=== PATIENT | female | born 1950 | race Caucasian/White ===

== ENCOUNTER → 2019-04-24 | Outpatient (CLI) | payer BC ==
[~2019-04-24] MED LIST: REGADENOSON 0.4 MG/5 ML DISP.SYRIN. IV ONE
--- NOTE | 2019-04-25 10:01 | PCVCIMAG ---
APPROVED REPORT Study performed: 04/24/2019 15:15:23 EXAM: Comprehensive 2D, Doppler, and color-flow Echocardiogram Patient Location: Echo lab Room #: 3Status: routine BSA: 1.97 HR: 74 bpmBP: 141/70 mmHg Rhythm: NSR Other Information Study Quality: Adequate Risk Factors: Cardiac Risk Factors: Hyperlipidemia Indications CAD Dyspnea on Exertion 2D Dimensions IVSd: 9.70 (7-11mm)LVOT Diam: 20.00 (18-24mm) LVDd: 44.90 mm PWd: 9.78 (7-11mm)Ascending Ao: 26.51 (22-36mm) LVDs: 29.37 (25-40mm) Left Atrium: 39.90 (27-40mm) Aortic Root: 29.08 mm LV Single Plane 4CH: 47.76 % LV Single Plane 2CH: 53.51 % Biplane EF: 50.7 % Volumes Left Atrial Volume (Systole) Single Plane 4CH: 36.24 mLSingle Plane 2CH: 44.69 mL LA ESV Index: 25.00 mL/m2 Aortic Valve AoV Peak Justin.: 1.50 m/s AO Peak Gr.: 9.05 mmHgLVOT Max P.22 mmHg LVOT Max V: 1.03 m/s GEO Vmax: 2.06 cm2 Mitral Valve E/A Ratio: 0.7 MV Decel. Time: 181.46 ms MV E Max Justin.: 0.76 m/s MV A Justin.: 1.06 m/s IVRT: 83.04 ms TDI E/Lateral E': 9.50E/Medial E': 19.00 Medial E' Justin.: 0.04 m/s Lateral E' Justin.: 0.08 m/s Pulmonary Valve PV Peak Justin.: 0.97 m/sPV Peak Gr.: 3.80 mmHg Pulmonary Vein P Vein S: 0.73 m/sP Vein A: 0.33 m/s P Vein D: 0.38 m/sP Vein A Dur.: 96.9 msec P Vein S/D Ratio: 1.92 Tricuspid Valve RAP Estimate: 7.00 mmHg Left Ventricle The left ventricle is normal size. There is normal LV segmental wall motion. There is normal left ventricular wall thickness. Left ventricular systolic function is normal. The left ventricular ejection fraction is within the normal range. LVEF is >55%. Mild diastolic dysfunction is present (impaired relaxation pattern). Right Ventricle The right ventricle is normal size. The right ventricular systolic function is normal. Atria The left atrium size is normal. The right atrium size is normal. Aortic Valve The aortic valve is normal in structure. No aortic regurgitation is present. There is no aortic valvular stenosis. Mitral Valve The mitral valve is normal in structure. Trace mitral regurgitation. No evidence of mitral valve stenosis. Tricuspid Valve The tricuspid valve is normal in structure. There is no tricuspid valve regurgitation noted. Pulmonic Valve The pulmonary valve is normal in structure. There is no pulmonic valvular regurgitation. Great Vessels The aortic root is normal in size. The ascending aorta is normal in size. IVC is normal in size and collapses >50% with inspiration. Pericardium There is no pericardial effusion. <Conclusion> The left ventricle is normal size. LVEF is >55%. The aortic valve is normal in structure. The mitral valve is normal in structure. Trace mitral regurgitation. The tricuspid valve is normal in structure. The pulmonary valve is normal in structure. There is no pericardial effusion.
--- NOTE | 2019-04-27 16:40 | PCVCIMAG ---
APPROVED REPORT Imaging Protocol: Rest Tc-99m/Stress Tc-99m 1 day Study performed: 04/24/2019 13:38:48 Indication: Abnormal EKG, PORTILLO, CAD Patient Location: Out-Patient Stress Nurse: Esha Meneses RN, Julita Leggett RN AL Tech:Flavio Vieyraveda [facility] Ht: 5 ft 9 in Wt: 178 lbs BSA: 1.97 m2 HR: 81 bpm BP: 141/70 mmHg BMI: 26.2 Rhythm: Sinus Rhythm Medical History Medical History: Age, HLP, Ca+ Score, Former Smoker Medications: No cardiac medications Allergies: PCN Resting Data Rest SPECT myocardial perfusion imaging was performed in supine position 45 minutes following the intravenous injection of 10.9 mCi of Tc-99m Sestamibi. Time of rest injection: 1340 Date: 04/24/2019 Administration Route: IV Administration Site: Right AC Pharmacologic Stress Pharmacologic stress test was performed by injecting Regadenoson 0.4 mg IV push over 10-15 seconds immediately followed by the intravenous injection of 31.8 mCi of Tc-99m Sestamibi. Time of stress injection: 1455 Date: 04/24/2019 Administration Route: IV Administration Site: Right AC Gated Stress SPECT was performed 45 minutes after stress injection. The images were gated to evaluate regional wall motion and calculate left ventricular ejection fraction. Stress Test Details Stress Test: Pharmacologic stress testing performed using 0.4 mg of regadenoson per 5 mL given IV over 10 seconds. Reason for pharmacologic stress test: respiratory illness/chest congestion. HRMax Heart Rate (APMHR): 152 bpm Resting HR: 81 bpmTarget HR (85% APMHR): 129 bpm Max HR Achieved: 105 bpm % of APMHR: 69 Recovery HR: 86 bpm BP Resting BP: 141/70 mmHg Max BP: 148/71 mmHg Recovery BP: 139/67 mmHg ECG Resting ECG: Sinus Rhythm Stress ECG: Sinus Tachycardia Arrhythmia: VPC's Recovery ECG: Sinus Rhythm Clinical Reason for Termination: Maximal effort Stress Symptoms: Dyspnea Symptoms resolved with caffeine. Stress ECG Conclusion 1. Adequate response to intravenous Lexiscan 2. Inadequate heart rate for ECG diagnosis Study Data Post stress, the left ventricular ejection was 69%.. SSS: 0 SRS: 0 SDS: 0 TID = 1.06. Perfusion There is a medium area of mildly reduced uptake in the mid and apical segment of the lateral wall which is seen on the stress images and normalizes on the resting images. This area thickens and moves normally and is most consistent with ischemia. Wall Motion Normal left ventricular wall motion. Nuclear Conclusion ECG Findings: non-diagnostic Clinical Findings: negative for ischemia Nuclear Findings: positive for ischemia Exercise Capacity: not assessed Left Ventricular Function: normal 1. Intermediate risk study based on lateral wall segment with reversible defect suggestive of inducible ischemia 2. Post stress left ventricular ejection fraction exceeding 69% with preserved contractility Interpreted by: Rosa Maria Batres MD Electronically Approved: 04/27/2019 16:40:09 <Conclusion> 1. Adequate response to intravenous Lexiscan 2. Inadequate heart rate for ECG diagnosis
== END | disposition home or self-care (01) ==
LOC: PCVCIMAG 13:25
PROVIDERS: ATTEND Internal Medicine
DX: I25.10 Atherosclerotic heart disease of native coronary artery without angina pectoris (principal); E78.5 Hyperlipidemia, unspecified; R94.31 Abnormal electrocardiogram [ECG] [EKG]; Z87.891 Personal history of nicotine dependence
CPT/HCPCS: 78452; 93017; 93306; A9500; J2785